=== PATIENT | male | born 1960 | race Caucasian/White ===

== ENCOUNTER → 2016-06-18 | Outpatient (CLI) | payer OTHER ==
[2016-06-18 14:19] LABS: Basophils % (A) 0 %; CHCM 35.3; Eosinophils % (A) 1 %; HCT 39.2 % (39.0-53.0); HDW 3.05; HGB 13.3 gm/dL (13.0-17.5); Luc % (Auto) 2; Lymphocytes # (A) 1.1 k/uL (1.0-4.8); Lymphocytes % (A) 27 %; MCH 38.7 pg (25.0-35.0); MCV 113.7 fL (80.0-100.0); Macrocytosis Marked; Mean Platelet Volume 7.4; Monocytes # (A) 0.2 k/uL (0-1.0); Monocytes % (A) 5 %; Neutrophils # (A) 2.6 k/uL (1.3-7.7); Neutrophils % (A) 64 %; RBC 3.45 m/uL (4.30-5.90); RDW 14.8 % (11.5-15.5); WBC (Perox) 4.33
[2016-06-18 14:32] LABS: ALT 37 U/L (21-72); AST 43 U/L (17-59); Alkaline Phosphatase 71 U/L (38-126); Anion Gap 11 mmol/L; Blood Urea Nitrogen 15 mg/dL (9-20); Calcium 9.5 mg/dL (8.4-10.2); Carbon Dioxide 29 mmol/L (22-30); Chloride 104 mmol/L (98-107); Glucose 92 mg/dL (74-99); Non-African American GFR(MDRD) 52 (>60 ml/min/1.73 sqM); Potassium 4.8 mmol/L (3.5-5.1); Sodium 144 mmol/L (137-145); Total Bilirubin 0.6 mg/dL (0.2-1.3); Total Protein 8.2 g/dL (6.3-8.2)
[2016-06-18 14:48] LABS: Manual Review Performed
[2016-06-19 15:04] LABS: LOG HIV Copies/mL 3.95 (<1.60)
== END | disposition home or self-care (01) ==
LOC: LABWHC1 13:20
PROVIDERS: ATTEND Internal Medicine Infectious Disease
DX: B20 Human immunodeficiency virus [HIV] disease (principal)
CPT/HCPCS: 36415; 80053; 85025; 86360; 87536

== ENCOUNTER → 2017-02-22 | Outpatient (CLI) | payer OTHER ==
[2017-02-22 10:20] LABS: Basophils % (A) 0 %; CH 39.8; Eosinophils % (A) 2 %; HCT 40.8 % (39.0-53.0); HGB 13.5 gm/dL (13.0-17.5); Luc # (Auto) 0.06; Luc % (Auto) 3; Lymphocytes # (A) 0.7 k/uL (1.0-4.8); Lymphocytes % (A) 27 %; MCHC 33.1 g/dL (31.0-37.0); MCV 117.8 fL (80.0-100.0); Macrocytosis Marked; Mean Platelet Volume 7.5; Monocytes # (A) 0.2 k/uL (0-1.0); Monocytes % (A) 7 %; Neutrophils # (A) 1.6 k/uL (1.3-7.7); Neutrophils % (A) 62 %; RBC 3.46 m/uL (4.30-5.90); RDW 14.1 % (11.5-15.5); WBC 2.6 k/uL (3.8-10.6); WBC (Perox) 2.75
[2017-02-22 10:49] LABS: ALT 33 U/L (21-72); AST 34 U/L (17-59); Alkaline Phosphatase 100 U/L (38-126); Anion Gap 10 mmol/L; Blood Urea Nitrogen 12 mg/dL (9-20); Calcium 9.1 mg/dL (8.4-10.2); Carbon Dioxide 29 mmol/L (22-30); Chloride 100 mmol/L (98-107); Glucose 93 mg/dL (74-99); Non-African American GFR(MDRD) 56 (>60 ml/min/1.73 sqM); Potassium 3.9 mmol/L (3.5-5.1); Sodium 139 mmol/L (137-145); Total Bilirubin 0.4 mg/dL (0.2-1.3); Total Protein 7.5 g/dL (6.3-8.2)
[2017-02-23 13:30] LABS: LOG HIV Copies/mL 4.37 (<1.60)
== END | disposition home or self-care (01) ==
LOC: LABWHC1 09:24
PROVIDERS: ATTEND Internal Medicine Infectious Disease
DX: B20 Human immunodeficiency virus [HIV] disease (principal)
CPT/HCPCS: 36415; 80053; 85025; 86360; 87536

== ENCOUNTER → 2017-05-13 | Outpatient (CLI) | payer OTHER ==
[2017-05-13 11:59] LABS: Basophils % (A) 1 %; CH 40.5; CHCM 35.1; Eosinophils # (A) 0.1 k/uL (0-0.7); Eosinophils % (A) 3 %; HCT 42.4 % (39.0-53.0); HDW 2.82; HGB 14.4 gm/dL (13.0-17.5); Luc # (Auto) 0.11; Luc % (Auto) 2; Lymphocytes # (A) 1.8 k/uL (1.0-4.8); Lymphocytes % (A) 35 %; MCH 39.6 pg (25.0-35.0); MCHC 34.1 g/dL (31.0-37.0); Macrocytosis Marked; Mean Platelet Volume 7.7; Monocytes # (A) 0.2 k/uL (0-1.0); Monocytes % (A) 5 %; Neutrophils % (A) 56 %; RBC 3.65 m/uL (4.30-5.90); RDW 13.7 % (11.5-15.5); WBC 5.3 k/uL (3.8-10.6); WBC (Perox) 5.22
[2017-05-13 12:18] LABS: Potassium 4.9 mmol/L (3.5-5.1); Total Bilirubin 0.5 mg/dL (0.2-1.3); Total Protein 8.7 g/dL (6.3-8.2)
[2017-05-14 14:48] LABS: LOG HIV Copies/mL 4.25 (<1.60)
== END | disposition home or self-care (01) ==
LOC: LABWHC1 11:08
PROVIDERS: ATTEND Internal Medicine Infectious Disease
DX: B20 Human immunodeficiency virus [HIV] disease (principal)
CPT/HCPCS: 36415; 80053; 85025; 86360; 87536

== ENCOUNTER → 2017-05-19 | Outpatient (CLI) | payer OTHER ==
--- NOTE | 2017-05-19 14:01 | CT ---
EXAMINATION TYPE: CT chest w con DATE OF EXAM: 05/19/2017 COMPARISON: NONE HISTORY: abn CxR CT DLP: 489 mGycm, Automated exposure control for dose reduction was used. CONTRAST: Performed injected with 100 mL of Omnipaque 300. TECHNIQUE: Axial images were obtained at 5 mm thick sections. Reconstructed images are reviewed on [employer] computer in the coronal plane. FINDINGS: Portion of the thyroid visualized is normal. There is a curvilinear spiculated density measuring 2.0 x 0.6 cm at the periphery of the right lung a pex. Scarring and neoplasm within the differential. Consider PET CT for additional workup. No additional suspicious densities or infiltrates are evident within the lung dacosta. Subglottic airw ay appears normal. Portion of the thyroid visualized is normal. No enlarged mediastinal or hilar lymp h nodes are evident. Adnexal regions appear normal. The ascending thoracic aorta at the level the main pulmonary artery is 3.8 cm. The main pulmonary art kasey at the bifurcation is 2.[address] sections are obtained through the upper abdomen. There has been a prior cholecystectomy. IMPRESSIONS: 1. Spiculated curvilinear right apical masslike area could represent scarring or neoplasm. Consider P ET CT for additional evaluation.
== END | disposition home or self-care (01) ==
LOC: RADCTMAIN 13:03
PROVIDERS: ATTEND Internal Medicine
DX: J98.4 Other disorders of lung (principal)
CPT/HCPCS: 71260; Q9967

== ENCOUNTER → 2017-10-01 | Outpatient (CLI) | payer OTHER ==
[2017-10-01 15:21] LABS: Basophils % (A) 0 %; Eosinophils # (A) 0.1 k/uL (0-0.7); Eosinophils % (A) 3 %; HGB 13.9 gm/dL (13.0-17.5); Lymphocytes # (A) 1.9 k/uL (1.0-4.8); Lymphocytes % (A) 41 %; MCH 39.3 pg (25.0-35.0); MCHC 33.9 g/dL (31.0-37.0); MCV 115.7 fL (80.0-100.0); Macrocytosis Marked; Mean Platelet Volume 7.6; Monocytes # (A) 0.4 k/uL (0-1.0); Monocytes % (A) 9 %; Neutrophils # (A) 2.1 k/uL (1.3-7.7); Neutrophils % (A) 46 %; Platelet Count 149 k/uL (150-450); RBC 3.54 m/uL (4.30-5.90); RDW 15.2 % (11.5-15.5); WBC 4.6 k/uL (3.8-10.6)
[2017-10-01 15:35] LABS: Albumin 4.3 g/dL (3.5-5.0); Calcium 9.6 mg/dL (8.4-10.2); Potassium 5.7 mmol/L (3.5-5.1); Total Bilirubin 0.3 mg/dL (0.2-1.3); Total Protein 7.7 g/dL (6.3-8.2)
[2017-10-04 14:25] LABS: T Helper Cell (CD4) 155 cell/ul (443-1471); T Helper Cell (CD4) % 7 % (35-66); T Suppressor Cell (CD8) 1740 cell/ul (190-832); T Suppressor Cell (CD8) % 81 % (9-37); T4/T8 Ratio (CD4:CD8) <0.1 (1.0-3.7)
[2017-10-05 13:46] LABS: HIV-1 RNA DETECTED (Not detected)
== END | disposition home or self-care (01) ==
LOC: LABWHC1 14:00
PROVIDERS: ATTEND Internal Medicine Infectious Disease
DX: B20 Human immunodeficiency virus [HIV] disease (principal)
CPT/HCPCS: 36415; 80053; 85025; 86360; 87536

== ENCOUNTER 2017-12-25 21:35 | Observation (INO) | payer OTHER ==
[2017-12-25] MEDS ORDERED: SODIUM CHLORIDE 0.9% 500 ML IV STA (21:42)
--- NOTE | 2017-12-25 21:59 | ED ---
Psych HPI - General Chief Complaint: Psychiatric Symptoms Stated Complaint: Sucidal,ETOH Time Seen by Provider: 12/25/17 21:35 Source: patient, EMS, RN notes reviewed Mode of arrival: EMS - History of Present Illness Initial Comments: This is a 49-year-old male with a history of alcoholism was states she's feeling depressed and suicidal. He was brought in by EMS because of this he states he drinks at least a half a fifth of liquor today. He states he was not feeling this way prior to drinking. He also does have a cough. He also fell and sustained injury to his forehead he states he hurts over his forehead he also complains some neck pain on the left and abrasion to the shoulder on the right. He was brought in by EMS he was not C-collared or back boarded. MD Complaint: suicidal ideation, feels depressed, other - Related Data Home Medications Medication Instructions Recorded Confirmed Unable To Assess [Unable to Assess] 12/25/17 12/25/17 Allergies Allergy/AdvReac Type Severity Reaction Status Date / Time No Known Allergies Allergy Verified 12/25/17 21:51 Review of Systems ROS Statement: Those systems with pertinent positive or pertinent negative responses have been documented in the HPI. ROS Other: All systems not noted in ROS Statement are negative. Past Medical History Past Medical History: COPD, Hypertension Additional Past Medical History / Comment(s): HIV positive History of Any Multi-Drug Resistant Organisms: None Reported Past Surgical History: Unable to Obtain Past Psychological History: Anxiety, Depression Smoking Status: Current every day smoker Past Alcohol Use History: Abuse, Heavy Past Drug Use History: None Reported General Exam - General Exam Comments Initial Comments: This is a well-developed well-nourished awake alert anxious male who was crying during the interview. He does have the smell of alcohol conjoiners on his breath he does have a Yoseph Coma Scale of 15 Limitations: altered mental status General appearance: alert, anxious, in distress Head exam: Present: atraumatic, normocephalic, normal inspection Eye exam: Present: normal appearance, PERRL, EOMI. Absent: scleral icterus, conjunctival injection, periorbital swelling ENT exam: Present: mucous membranes dry, mucous membranes moist Neck exam: Present: normal inspection, tenderness (Palpation of left lateral neck musculature and paraspinous muscles), full ROM (Full range of motion was noted prior to my exam). Absent: meningismus, lymphadenopathy Respiratory exam: Present: wheezes, decreased breath sounds. Absent: respiratory distress, rales, rhonchi, stridor Cardiovascular Exam: Present: regular rate, normal rhythm, normal heart sounds. Absent: systolic murmur, diastolic murmur, rubs, gallop, clicks GI/Abdominal exam: Present: soft, normal bowel sounds. Absent: distended, tenderness, guarding, rebound, rigid Extremities exam: Present: normal inspection, full ROM, normal capillary refill. Absent: tenderness, pedal edema, joint swelling, calf tenderness Back exam: Present: normal inspection Neurological exam: Present: alert, oriented X3, CN II-XII intact Psychiatric exam: Present: normal affect, normal mood Skin exam: Present: warm, dry, intact, normal color. Absent: rash Course Vital Signs 12/25/17 12/25/17 21:45 23:02 Temperature 98.1 F Pulse Rate 89 92 Respiratory 24 18 Rate Blood Pressure 175/87 145/74 O2 Sat by Pulse 91 L 99 Oximetry - Reevaluation(s) Reevaluation #1: 12/25/17 23:36 The patient continues to have episodes of crying. His alcohol level is markedly elevated. Medical Decision Making - Medical Decision Making The patient is markedly intoxicated he does demonstrate evidence of bronchospasm likely some COPD exacerbation he will be admitted I did discuss case with Dr. Hines regarding alcohol intoxication will also receive a updraft treatments and IV steroids while - Lab Data Result diagrams: 12/25/17 21:52 12/25/17 21:52 Lab Results 12/25/17 12/25/17 12/25/17 Range/Units 21:52 21:52 21:52 WBC 5.7 (3.8-10.6) k/uL RBC 4.02 L (4.30-5.90) m/uL Hgb 15.1 (13.0-17.5) gm/dL Hct 45.1 (39.0-53.0) % MCV 112.2 H (80.0-100.0) fL MCH 37.5 H (25.0-35.0) pg MCHC 33.4 (31.0-37.0) g/dL RDW 13.9 (11.5-15.5) % Plt Count 171 (150-450) k/uL Neutrophils % 59 % Lymphocytes % 33 % Monocytes % 5 % Eosinophils % 1 % Basophils % 0 % Neutrophils # 3.3 (1.3-7.7) k/uL Lymphocytes # 1.9 (1.0-4.8) k/uL Monocytes # 0.3 (0-1.0) k/uL Eosinophils # 0.1 (0-0.7) k/uL Basophils # 0.0 (0-0.2) k/uL Manual Slide Review Performed Macrocytosis Marked PT 9.9 (9.0-12.0) sec INR 1.0 (<1.2) Sodium 142 (137-145) mmol/L Potassium 4.2 (3.5-5.1) mmol/L Chloride 104 (98-107) mmol/L Carbon Dioxide 26 (22-30) mmol/L Anion Gap 12 mmol/L BUN 15 (9-20) mg/dL Creatinine 1.40 H (0.66-1.25) mg/dL Est GFR (CKD-EPI)AfAm 64 (>60 ml/min/1.73 sqM) Est GFR (CKD-EPI)NonAf 55 (>60 ml/min/1.73 sqM) Glucose 93 (74-99) mg/dL Calcium 9.1 (8.4-10.2) mg/dL Total Bilirubin 0.5 (0.2-1.3) mg/dL AST 58 (17-59) U/L ALT 35 (21-72) U/L Alkaline Phosphatase 91 (38-126) U/L Total Protein 8.5 H (6.3-8.2) g/dL Albumin 4.4 (3.5-5.0) g/dL Amylase 68 (30-110) U/L Serum Alcohol 349 mg/dL - EKG Data -: EKG Interpreted by [facility] EKG shows normal: sinus rhythm (Sinus rhythm rate of 86 OH interval 150 QRS duration 84 daily since QTC 14/500 nonspecific septal changes prolonged QT nonspecific T-wave configuration) - Radiology Data Radiology results: report reviewed (I did review the imaging and report was essentially CAT scan no acute findings. The report for the x-rays pending no obvious infiltrates are noted increased markings are noted however.), image reviewed Disposition Clinical Impression: Depression, Suicidal ideation, Alcohol intoxication, COPD with exacerbation Disposition: ADMITTED IP TO THIS [facility] Condition: Stable Referrals: None,Stated [Primary Care Provider] - 1-2 days
[2017-12-25] MEDS ORDERED: SODIUM CHLORIDE 0.9% 1,000 ML with MVI, ADULT NO.4 WITH VIT K 10 ML, THIAMINE 100 MG, F... IV ONE ×4 (22:00)
[2017-12-25 22:15] LABS: Prothrombin Time 9.9 sec (9.0-12.0)
[2017-12-25 22:16] LABS: Basophils % (A) 0 %; Eosinophils # (A) 0.1 k/uL (0-0.7); Eosinophils % (A) 1 %; HCT 45.1 % (39.0-53.0); HGB 15.1 gm/dL (13.0-17.5); Lymphocytes # (A) 1.9 k/uL (1.0-4.8); Lymphocytes % (A) 33 %; MCH 37.5 pg (25.0-35.0); MCHC 33.4 g/dL (31.0-37.0); MCV 112.2 fL (80.0-100.0); Macrocytosis Marked; Mean Platelet Volume 6.5; Monocytes # (A) 0.3 k/uL (0-1.0); Monocytes % (A) 5 %; Neutrophils # (A) 3.3 k/uL (1.3-7.7); Neutrophils % (A) 59 %; Platelet Count 171 k/uL (150-450); RBC 4.02 m/uL (4.30-5.90); RDW 13.9 % (11.5-15.5); WBC 5.7 k/uL (3.8-10.6)
[2017-12-25 22:18] LABS: Albumin 4.4 g/dL (3.5-5.0); Calcium 9.1 mg/dL (8.4-10.2); Potassium 4.2 mmol/L (3.5-5.1); Total Bilirubin 0.5 mg/dL (0.2-1.3); Total Protein 8.5 g/dL (6.3-8.2)
--- NOTE | 2017-12-25 22:49 | CT ---
EXAMINATION TYPE: CT brain marilyn haines DATE OF EXAM: 12/25/2017 COMPARISON: None HISTORY: Fall with head injury CT DLP: 1235.6 mGycm Automated exposure control for dose reduction was used. TECHNIQUE: CT scan of the head and cervical spine are performed without contrast. FINDINGS: There is cerebral cortical atrophy. There is no mass effect nor midline shift. There is n o sign of intracranial hemorrhage. The calvarium is intact. There is normal alignment of the cervical vertebra. There is fusion of C4 C5 C6 vertebral bodies. The posterior elements are intact. There is fusion of facet joints at C4-5. Skull base is intact. There is no compression fracture. IMPRESSION: There is cerebral atrophy. No acute intracranial abnormality. Mild left maxillary sinusitis noted. Cervical spine fusion and spondylotic change. No fracture.
[2017-12-25] MEDS ORDERED: IPRATROPIUM-ALBUTEROL 3 ML NEB INHALATION STA (23:34)
[2017-12-25] MEDS ORDERED: methylPREDNISolone SOD SUCCI 125 MG/2 ML VIAL IV STA (23:35)
[2017-12-25] MEDS ORDERED: IPRATROPIUM-ALBUTEROL 3 ML NEB INHALATION PRN (23:38)
--- NOTE | 2017-12-25 23:40 | XR ---
EXAMINATION TYPE: XR chest 2V DATE OF EXAM: 12/25/2017 COMPARISON: 04/21/2017 HISTORY: Chest pain TECHNIQUE: Frontal and lateral views of the chest are obtained. FINDINGS: Heart and mediastinum are normal. Lungs are clear of consolidation. There are chest leads. Costophrenic angles are clear. Bony thorax is intact. IMPRESSION: No active cardiopulmonary disease. No change.
[2017-12-26] MEDS: SODIUM CHLORIDE 0.9% 1,000 ML IV SCH ×2 (00:42→00:56)
[2017-12-26] MEDS: methylPREDNISolone SOD SUCCI 125 MG/2 ML VIAL IV SCH ×2 (00:55→06:27)
[2017-12-26] MEDS ORDERED: LORazepam 2 MG/ML INJ IV PRN ×3 (01:29)
--- NOTE | 2017-12-26 01:30 | P.HPIM ---
History of Present Illness H&P Date: 12/26/17 Chief Complaint: Depressed suicidal acute alcohol intoxication The patient is a 57-year-old male with a past with a history of COPD, hypertension who is also HIV positive who presents to the ER via EMS. Apparently on arrival EMS found the patient sitting on the floor, and stating that he had been drinking all day and it had approximately a fifth of whiskey. Patient's brother was present and reported to EMS that the patient stated that he wanted to kill himself. The patient is very tearful and emotional and apparently told nursing staff that he is now estranged from his partner and that she does not love him anymore and was siting this is a reason for his depression. When asked about a plan the patient stated that he would simply take all of his medications at once. The patient apparently also fell and sustained injury to his forehead and states it hurts of his forehead and also was complaining of some neck pain on the left shoulder abrasion on the right shoulder. On arrival to the patient was not in a c-collar. The patient is a poor historian and is unable to recall his medications but does report. Dr. Gonzalez is ID clinic for his HIV. The patient does report cough And was wheezing in the ER. Patient received a cooperative workup in the ER, he was noted to be acutely intoxicated with a serum alcohol level of 349 with a serum creatinine of 1.4. CT of the head and C-spine showed cerebral atrophy with no acute intracranial abnormality, mild sinusitis With the cervical spine fusion with no acute fracture. He was recommended for admission for suicidal ideation/ depression with acute alcohol intoxication COPD exacerbation Review of Systems RoS with pertinent positive or pertinent negative responses have been documented in the HPI. ROS Other: All systems not noted in ROS Statement are negative Past Medical History Past Medical History: COPD, Hypertension Additional Past Medical History / Comment(s): HIV positive History of Any Multi-Drug Resistant Organisms: None Reported Past Surgical History: Unable to Obtain Past Psychological History: Anxiety, Depression Smoking Status: Current every day smoker Past Alcohol Use History: Abuse, Heavy Past Drug Use History: None Reported Medications and Allergies Home Medications Medication Instructions Recorded Confirmed Type Unable To Assess [Unable to Assess] 12/25/17 12/25/17 History Allergies Allergy/AdvReac Type Severity Reaction Status Date / Time No Known Allergies Allergy Verified 12/25/17 21:51 Physical Exam Vitals: Vital Signs Temp Pulse Pulse Resp BP BP Pulse Ox 12/26/17 00:43 98.4 F 92 20 157/99 95 12/25/17 23:56 97.8 F 85 17 132/85 98 12/25/17 23:49 21 12/25/17 23:48 91 12/25/17 23:42 94 12/25/17 23:36 84 21 142/84 91 L 12/25/17 23:02 92 18 145/74 99 12/25/17 21:45 98.1 F 89 24 175/87 91 L Intake and Output 12/25/17 12/25/17 12/26/17 14:59 22:59 06:59 Other: Weight 72.575 kg Constitutional: Tearful emotional, crying Eyes: Anicteric sclerae, moist conjunctiva, no lid-lag, PERRLA ENMT: NC/AT,Oropharynx clear, no erythema, exudates Neck:Supple, FROM, no masses, or JVD, No carotid bruits; No thyromegaly Lungs: Clear to auscultation, Clear to percussion, Normal respiratory effort, no accessory muscle use Cardiovascular: Heart regular in rate and rhythm, No murmurs, gallops, or rubs no peripheral edema Abdominal: Soft Nontender, nom distended, no guarding, no rebound or rigidity, Normoactive bowel sounds No hepatomegaly, No splenomegaly, No palpable mass No abdominal wall hernia noted Skin: Normal temperature, tone, texture, turgor, No induration No subcutaneous nodules, No rash, lesions, No ulcers Extremities:No digital cyanosis No clubbing, Pedal pulses intact and symmetrical Radial pulses intact and symmetrical Normal gait and station, No calf tenderness Psychiatric: Awake and alert and oriented to self and place and time,, depressed mood tearful emotional, poor eye contact, crying in position Neuro: Muscles Strength 5/5 in all 4 extremities, Sensation to light touch grossly present throughout, Cranial nerves II-XII grossly intact. No focal sensory deficits Results CBC & Chem 7: 12/25/17 21:52 12/25/17 21:52 Labs: Abnormal Lab Results - Last 24 Hours (Table) 12/25/17 12/25/17 Range/Units 21:52 21:52 RBC 4.02 L (4.30-5.90) m/uL MCV 112.2 H (80.0-100.0) fL MCH 37.5 H (25.0-35.0) pg Creatinine 1.40 H (0.66-1.25) mg/dL Total Protein 8.5 H (6.3-8.2) g/dL Assessment and Plan Assessment: Chronic medical conditions HIV positive (1) Alcohol intoxication Current Visit: Yes Status: Acute Code(s): F10.929 - ALCOHOL USE, UNSPECIFIED WITH INTOXICATION, UNSPECIFIED SNOMED Code(s): 78741698 (2) COPD with exacerbation Current Visit: Yes Status: Acute Code(s): J44.1 - CHRONIC OBSTRUCTIVE PULMONARY DISEASE W (ACUTE) EXACERBATION SNOMED Code(s): 487488548 (3) Depression Current Visit: Yes Status: Acute Code(s): F32.9 - MAJOR DEPRESSIVE DISORDER , SINGLE EPISODE, UNSPECIFIED SNOMED Code(s): 83942666 (4) Suicidal ideation Current Visit: Yes Status: Acute Code(s): R45.851 - SUICIDAL IDEATIONS SNOMED Code(s): 3057013 Plan: The patient is placed on observation anticipated less than 2 midnight stay with acute alcohol intoxication, suicidal ideation depression and acute COPD exacerbation. The patient is started on IV fluids with banana bag for his acute alcohol intoxication, we'll continue to monitor for any signs of withdrawals. Ativan when necessary initiated, patient started on systemic steroids and breathing treatments for his COPD exacerbation. Her suicidal ideation depression Dr. Kulkarni has been consulted patient will likely need to be transferred to the psychiatric inpatient unit tomorrow. Continue to follow patient's clinical course
[2017-12-26] MEDS ORDERED: IPRATROPIUM-ALBUTEROL 3 ML NEB INHALATION SCH (04:00)
[2017-12-26] MEDS ORDERED: ACETAMINOPHEN TAB 325 MG TAB PO PRN (06:57)
[2017-12-26 07:31] VITALS: BP 145/83; PULSE 79; RESP 14; TEMP 97.7
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
[2017-12-26] MEDS ORDERED: LIDOCAINE 5% PATCH TOPICAL SCH (09:30)
[2017-12-26] MEDS ORDERED: FOLIC ACID 1 MG TAB PO SCH (12:00)
[2017-12-26] MEDS ORDERED: MULTIVITAMINS, THERA 1 EACH TAB PO SCH (12:00)
[2017-12-26] MEDS ORDERED: THIAMINE 100 MG TAB PO SCH (12:00)
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
[2017-12-26] MEDS ORDERED: SYMBICORT 160-4.5 MCG INHALER INHALATION SCH (20:00)
[2017-12-26] MEDS ORDERED: HEPARIN SODIUM,PORCINE 5,000 UNIT/ML 1 ML VIAL SQ SCH (21:00)
[2017-12-27] MEDS ORDERED: PANTOPRAZOLE 40 MG TABLET PO SCH (07:30)
[2017-12-27] MEDS ORDERED: predniSONE 50 MG TAB PO SCH (09:00)
== END 2017-12-26 14:48 | disposition home or self-care (01) ==
LOC: EC 21:35 → 3SUR 23:38
PROVIDERS: ADMIT Family Medicine; ATTEND Family Medicine
DX: F43.21 Adjustment disorder with depressed mood (principal); F10.229 Alcohol dependence with intoxication, unspecified; J44.1 Chronic obstructive pulmonary disease with (acute) exacerbation; N17.9 Acute kidney failure, unspecified; I10 Essential (primary) hypertension; E86.0 Dehydration; Z21 Asymptomatic human immunodeficiency virus [HIV] infection status; F17.200 Nicotine dependence, unspecified, uncomplicated; R40.2412 Glasgow coma scale score 13-15, at arrival to emergency department; Y90.8 Blood alcohol level of 240 mg/100 ml or more; D75.89 Other specified diseases of blood and blood-forming organs; M54.2 Cervicalgia; S09.90XA Unspecified injury of head, initial encounter; S40.212A Abrasion of left shoulder, initial encounter; S40.211A Abrasion of right shoulder, initial encounter; W19.XXXA Unspecified fall, initial encounter; F41.9 Anxiety disorder, unspecified; Z98.1 Arthrodesis status; Z79.899 Other long term (current) drug therapy; M54.5 Low back pain; W22.8XXA Striking against or struck by other objects, initial encounter; J32.9 Chronic sinusitis, unspecified
CPT/HCPCS: 99285 ×2; 96365 ×2; 96366 ×2; 96376; 96375; 82075; 36415; 94640; 93005; 80053; 82150; 85025; 85610; 80320; 71046; 72125; 70450; G0378 ×2; J2930; J3411

== ENCOUNTER 2017-12-27 09:26 | Emergency (ER) | payer OTHER ==
[2017-12-27 09:41] VITALS: RESP 18; TEMP 97.2
[2017-12-27] MEDS ORDERED: LORazepam 2 MG/ML INJ IM STA (09:44)
--- NOTE | 2017-12-27 09:50 | ED ---
General Adult HPI - General Chief complaint: Psychiatric Symptoms Stated complaint: Depression Time Seen by Provider: 12/27/17 09:30 Source: patient, EMS, RN notes reviewed Mode of arrival: EMS Limitations: no limitations - History of Present Illness Initial comments: This a 57-year-old male who presents emergency Department stating he's intoxicated and he is depressed. Patient denies suicidal or homicidal ideations to me patient denies trying to harm himself today. Patient is tearful throughout his exam and states he's just depressed. Patient states he was here yesterday. Patient denies any physical complaints today. Patient denies headache patient denies numbness weakness. Patient denies any chest pain palpitations difficulty breathing or shortness of breath. Patient denies abdominal pain patient denies nausea vomiting or diarrhea. Fever chills or cough. - Related Data Home Medications Medication Instructions Recorded Confirmed Complera 1 tab PO DAILY 12/26/17 12/27/17 Lisinopril [Zestril] 10 mg PO DAILY 12/27/17 12/27/17 Allergies Allergy/AdvReac Type Severity Reaction Status Date / Time No Known Allergies Allergy Verified 12/27/17 10:24 Review of Systems ROS Statement: Those systems with pertinent positive or pertinent negative responses have been documented in the HPI. ROS Other: All systems not noted in ROS Statement are negative. Past Medical History Past Medical History: COPD, Hypertension Additional Past Medical History / Comment(s): HIV positive History of Any Multi-Drug Resistant Organisms: None Reported Past Surgical History: Cholecystectomy Additional Past Surgical History / Comment(s): Oral Surgery Past Anesthesia/Blood Transfusion Reactions: No Reported Reaction Past Psychological History: Anxiety, Depression Smoking Status: Current every day smoker Past Alcohol Use History: Abuse, Heavy Past Drug Use History: None Reported - Past Family History Father Family Medical History: Diabetes Mellitus, Hypertension Mother Family Medical History: Seizure Disorder General Exam - General Exam Comments Initial Comments: GENERAL: Patient is well-developed and well-nourished. Patient is nontoxic and well- hydrated and is in mild distress. ENT: Neck is soft and supple. No significant lymphadenopathy is noted. Oropharynx is clear. Moist mucous membranes. Neck has full range of motion without eliciting any pain. EYES: The sclera were anicteric and conjunctiva were pink and moist. Extraocular movements were intact and pupils were equal round and reactive to light. Eyelids were unremarkable. PULMONARY: Unlabored respirations. Good breath sounds bilaterally. No audible rales rhonchi or wheezing was noted. CARDIOVASCULAR: There is a regular rate and rhythm without any murmurs gallops or rubs. ABDOMEN: Soft and nontender with normal bowel sounds. No palpable organomegaly was noted. There is no palpable pulsatile mass. SKIN: Skin is clear with no lesions or rashes and otherwise unremarkable. NEUROLOGIC: Patient is alert and oriented x3. Cranial nerves II through XII are grossly intact. Motor and sensory are also intact. Normal speech, volume and content. Symmetrical smile. MUSCULOSKELETAL: Normal extremities with adequate strength and full range of motion. No lower extremity swelling or edema. No calf tenderness. LYMPHATICS: No significant lymphadenopathy is noted PSYCHIATRIC: Patient is tearful throughout the interview stating he is very depressed he again denies suicidal or homicidal ideations to me. Limitations: no limitations Course Vital Signs 12/27/17 09:30 Temperature 97.2 F L Pulse Rate 78 Respiratory 18 Rate Blood Pressure 143/72 O2 Sat by Pulse 95 Oximetry Medical Decision Making - Medical Decision Making Patient repeatedly denied to myself and the nurse that he suicidal. Patient was able to ambulate and patient was eating in the emergency department. At this point time he was able to get a ride and since he was not suicidal and was stable we discharged the patient. - Lab Data Lab Results 12/27/17 Range/Units 09:54 Urine Opiates Screen Not Detected (NotDetected) Ur Oxycodone Screen Not Detected (NotDetected) Urine Methadone Screen Not Detected (NotDetected) Ur Propoxyphene Screen Not Detected (NotDetected) Ur Barbiturates Screen Not Detected (NotDetected) U Tricyclic Antidepress Not Detected (NotDetected) Ur Phencyclidine Scrn Not Detected (NotDetected) Ur Amphetamines Screen Not Detected (NotDetected) U Methamphetamines Scrn Not Detected (NotDetected) U Benzodiazepines Scrn Not Detected (NotDetected) Urine Cocaine Screen Not Detected (NotDetected) U Marijuana (THC) Screen Not Detected (NotDetected) Disposition Clinical Impression: Situational depression, Alcohol abuse Disposition: HOME SELF-CARE Condition: Good Instructions: Abuse of Alcohol (ED), Depression (ED) Is patient prescribed a controlled substance at d/c from ED?: No Referrals: None,Stated [Primary Care Provider] - 1-2 days Time of Disposition: 13:24
[2017-12-27 10:39] LABS: Amphetamine Screen,Urine Not Detected (NotDetected); Barbiturate Screen,Urine Not Detected (NotDetected); Benzodiazepines Screen,Urine Not Detected (NotDetected); Cocaine Screen,Urine Not Detected (NotDetected); Methadone Screen, Urine Not Detected (NotDetected); Opiate Screen,Urine Not Detected (NotDetected); Oxycodone Screen, Urine Not Detected (NotDetected); Phencyclidine Screen,Urine Not Detected (NotDetected); Tricyclic Antidepressant,Urine Not Detected (NotDetected); Urn Cannabinoid Scrn Not Detected (NotDetected)
[2017-12-27 13:55] VITALS: BP 138/84; PULSE 99
== END 2017-12-27 13:56 | disposition home or self-care (01) ==
LOC: EC 09:26
DX: F43.21 Adjustment disorder with depressed mood (principal); F10.10 Alcohol abuse, uncomplicated; I10 Essential (primary) hypertension; F41.9 Anxiety disorder, unspecified; F17.200 Nicotine dependence, unspecified, uncomplicated; Z79.899 Other long term (current) drug therapy; Z21 Asymptomatic human immunodeficiency virus [HIV] infection status
CPT/HCPCS: 82075; 80306; 99284; 96372; J2060

== ENCOUNTER → 2018-05-04 | Outpatient (CLI) | payer OTHER ==
[2018-05-04 13:03] LABS: Basophils % (A) 0 %; Eosinophils # (A) 0.1 k/uL (0-0.7); Eosinophils % (A) 2 %; Lymphocytes # (A) 1.2 k/uL (1.0-4.8); Lymphocytes % (A) 28 %; MCH 37.5 pg (25.0-35.0); MCHC 33.6 g/dL (31.0-37.0); MCV 111.5 fL (80.0-100.0); Macrocytosis Marked; Mean Platelet Volume 7.4; Monocytes # (A) 0.3 k/uL (0-1.0); Monocytes % (A) 6 %; Neutrophils # (A) 2.6 k/uL (1.3-7.7); Neutrophils % (A) 61 %; Platelet Count 150 k/uL (150-450); RDW 14.1 % (11.5-15.5); WBC 4.3 k/uL (3.8-10.6)
[2018-05-04 13:43] LABS: HGB 6.4 gm/dL (13.0-17.5)
[2018-05-04 13:44] LABS: HCT 18.9 % (39.0-53.0)
[2018-05-04 15:30] LABS: Polychromasia Present
[2018-05-04 21:40] LABS: Albumin 3.8 g/dL (3.80-4.90); Albumin/Globulin Ratio 1.41 (1.20-2.10); Anion Gap 11.9 mmol/L (4.00-12.00); Calcium 8.3 mg/dL (8.7-10.3); Carbon Dioxide 13.1 mmol/L (21.6-31.8); Globulin 2.7 g/dL (2.1-3.7); Total Bilirubin 0.1 mg/dL (0.2-1.2); Total Protein 6.5 g/dL (6.2-8.2)
[2018-05-05 10:38] LABS: T4/T8 Ratio (CD4:CD8) 0.1 (1.0-3.7)
[2018-05-05 11:55] LABS: Potassium 6.5 mmol/L (3.5-5.5)
[2018-05-05 13:25] LABS: HIV-1 RNA DETECTED (Not detected); HIV-1 RNA, Quant 47 Copies/mL (<40)
== END | disposition home or self-care (01) ==
LOC: LABWHC1 12:26
PROVIDERS: ATTEND Internal Medicine Infectious Disease
DX: B20 Human immunodeficiency virus [HIV] disease (principal)
CPT/HCPCS: 36415; 80053; 85025; 86360; 87536